=== PATIENT | female | born 1985 | race Caucasian/White ===

== ENCOUNTER 2018-08-14 08:42 | Emergency (ER) | payer BC ==
[~2018-08-14] VITALS: Ht 170.2 cm; Wt 87.2 kg
[2018-08-14 08:43] VITALS: BP 105/68
== END 2018-08-14 09:40 | disposition home or self-care (01) ==
LOC: ER 08:42
DX: O26.891 Other specified pregnancy related conditions, first trimester (principal); M79.602 Pain in left arm; Z88.5 Allergy status to narcotic agent; Z3A.12 12 weeks gestation of pregnancy
CPT/HCPCS: 99281

== ENCOUNTER 2018-09-30 19:39 | Emergency (ER) | payer BC ==
--- NOTE | 2018-09-30 19:45 | NUR ---
PT REFUSING TO BE SEEN BECAUSE HER FRIEND COULDN'T COME INTO TRIAGE. I OFFERED TO TRIAGE THE PATIENT AND TOLD HER SHE WOULD BE SEEN BUT SHE REFUSED TO BE TRIAGED.
--- NOTE | 2018-09-30 19:55 | NUR ---
triage notes written on wrong patient.
== END 2018-09-30 21:18 | disposition left against medical advice (07) ==
LOC: ER 19:39
DX: R10.9 Unspecified abdominal pain (principal); Z53.21 Procedure and treatment not carried out due to patient leaving prior to being seen by health care provider

== ENCOUNTER 2020-06-21 19:25 | Emergency (ER) | payer BC, OTHER ==
[~2020-06-21] VITALS: Ht 167.6 cm; Wt 77.3 kg
[2020-06-21 19:27] VITALS: BP 117/78
[2020-06-21 20:14] LABS: HEMOGLOBIN 14.7 g/dl (12.0-16.0); MEAN PLATELET VOLUME 9.6 FL (7.4-10.4)
[2020-06-21 20:16] LABS: BASOPHILS # (AUTO) 0.1 X10'3 (0-0.2); BASOPHILS % (AUTO) 1.1 % (0-1); EOSINOPHILS # (AUTO) 0.4 X10'3 (0-0.9); EOSINOPHILS % (AUTO) 3.1 % (0-6); HEMATOCRIT 42.8 % (35.0-45.0); LYMPHOCYTES # (AUTO) 2.5 X10'3 (1.1-4.8); LYMPHOCYTES % (AUTO) 21.5 % (21-51); MEAN CORPUSCULAR HEMOGLOBIN 31.2 PG (27.0-31.0); MEAN CORPUSCULAR HGB CONC 34.3 g/dL (33.0-36.5); MONOCYTES # (AUTO) 0.8 X10'3 (0-0.9); MONOCYTES % (AUTO) 7.4 % (2-12); NEUTROPHILS # (AUTO) 7.7 X10'3 (1.8-7.7); NEUTROPHILS % (AUTO) 66.9 % (42-75); PLATELET COUNT 273 X10'3 (140-440); RED CELL DISTRIBUTION WIDTH 13.3 % (11.5-14.5); WHITE BLOOD COUNT 11.5 X10'3 (4.5-11.0)
[2020-06-21 20:27] LABS: D-DIMER 0.79 MG/L FEU (0-0.50)
[2020-06-21 20:32] LABS: ALANINE AMINOTRANSFERASE 25 U/L (12-78); ALBUMIN 3.6 G/DL (3.4-5.0); ALKALINE PHOSPHATASE 108 IU/L (46-116); ANION GAP 11 (8-16); ASPARTATE AMINO TRANSFERASE 14 U/L (10-37); BILIRUBIN,TOTAL 0.4 MG/DL (0.1-1.0); BLOOD UREA NITROGEN 8 MG/DL (7-18); BUN/CREATININE RATIO 7.8 (6.6-38.0); CALCIUM 8.8 MG/DL (8.5-10.1); CHLORIDE 105 MMOL/L (99-107); CREATININE 1.03 MG/DL (0.40-0.90); GLUCOSE 85 MG/DL (70-104); SODIUM 141 MMOL/L (135-145); TOTAL CARBON DIOXIDE 25.3 MMOL/L (24-32); TOTAL PROTEIN 7.1 G/DL (6.4-8.2); eGFR 61 ML/MIN
[2020-06-21 20:45] LABS: POTASSIUM 4.1 MMOL/L (3.5-5.1)
[2020-06-21 20:46] LABS: HCG SERUM QL NEGATIVE
[2020-06-21] MEDS ORDERED: iohexol 350MG/ML 100ml bottle IV ONE (21:04)
== END 2020-06-21 22:13 | disposition home or self-care (01) ==
LOC: ER 19:25
DX: R07.89 Other chest pain (principal); R05 Cough; R06.02 Shortness of breath; Z20.828 Contact with and (suspected) exposure to other viral communicable diseases; Z88.8 Allergy status to other drugs, medicaments and biological substances
CPT/HCPCS: 36415; 71045; 71275; 80053; 83880; 84484; 84703; 85025; 85379; 87635; 93005; 99285; Q9967

== ENCOUNTER 2021-06-25 22:25 | Emergency (ER) | payer OTHER ==
[~2021-06-25] VITALS: Ht 167.6 cm; Wt 77.3 kg
[2021-06-25 22:32] VITALS: BP 125/80
[2021-06-26] MEDS ORDERED: ketorolac tromethamine 15mg/ml inj. IM ONE ×2 (00:05)
[2021-06-26] MEDS ORDERED: IBUP-1984 PO (00:11)
[2021-06-26] MEDS ORDERED: ketorolac trometh. 30mg/ml inj. IM ONE (00:15)
== END 2021-06-26 00:22 | disposition home or self-care (01) ==
LOC: ER 22:26
DX: S50.12XA Contusion of left forearm, initial encounter (principal); M79.632 Pain in left forearm; Z88.8 Allergy status to other drugs, medicaments and biological substances; Z79.899 Other long term (current) drug therapy; X58.XXXA Exposure to other specified factors, initial encounter; Y93.64 Activity, baseball; Y92.89 Other specified places as the place of occurrence of the external cause; Y99.8 Other external cause status
CPT/HCPCS: 73090; 96372; 99283; J1885

== ENCOUNTER 2021-12-28 19:37 | Emergency (ER) | payer OTHER ==
[~2021-12-28] VITALS: Ht 167.6 cm; Wt 84.1 kg
--- NOTE | 2021-12-28 22:07 | NUR ---
DE CALLED [facility] 30 MIN AGO
--- NOTE | 2021-12-28 22:16 | NUR ---
technical sales specialist at bedside
[2021-12-28 22:44] VITALS: BP 106/70
== END 2021-12-28 22:45 | disposition home or self-care (01) ==
LOC: ER 19:38
DX: M79.605 Pain in left leg (principal); I74.9 Embolism and thrombosis of unspecified artery; Z88.8 Allergy status to other drugs, medicaments and biological substances
CPT/HCPCS: 93971; 99284

== ENCOUNTER 2022-04-29 12:39 | Emergency (ER) | payer OTHER ==
[~2022-04-29] VITALS: Ht 170.2 cm; Wt 90.9 kg
[2022-04-29 13:07] VITALS: BP 98/67
== END 2022-04-29 17:17 | disposition left against medical advice (07) ==
LOC: ER 12:40
DX: R07.89 Other chest pain (principal); Z53.21 Procedure and treatment not carried out due to patient leaving prior to being seen by health care provider

== ENCOUNTER 2022-11-07 20:38 | Emergency (ER) | payer OTHER ==
[~2022-11-07] VITALS: Ht 170.2 cm; Wt 88.6 kg
[2022-11-07 21:03] VITALS: BP 111/72
[2022-11-07] MEDS ORDERED: ondansetron 4mg rapidly disintigrating tab PO ONE (22:30)
[2022-11-07] MEDS ORDERED: HYDROcodone/acetaminophen 5mg/325mg tablet PO ONE (22:30)
[2022-11-07] MEDS ORDERED: ketorolac trometh. 30mg/ml inj. IM ONE (22:30)
== END 2022-11-07 23:20 | disposition home or self-care (01) ==
LOC: ER 20:39
DX: S83.91XA Sprain of unspecified site of right knee, initial encounter (principal); Z88.5 Allergy status to narcotic agent; X58.XXXA Exposure to other specified factors, initial encounter; Y93.89 Activity, other specified; Y92.89 Other specified places as the place of occurrence of the external cause; Y99.8 Other external cause status
CPT/HCPCS: 73564; 96372; 99283; J1885

== ENCOUNTER 2022-11-11 21:22 | Emergency (ER) | payer OTHER ==
[~2022-11-11] VITALS: Ht 168.9 cm; Wt 90.0 kg
[2022-11-11 21:28] VITALS: BP 118/77
[2022-11-11] MEDS ORDERED: HYDROcodone/acetaminophen 10/325mg tab PO ONE (22:15)
[2022-11-11] MEDS ORDERED: HYDR-3965 PO (23:29)
[2022-11-11] MEDS ORDERED: ONDA4TAB12 PO (23:29)
[2022-11-11] MEDS ORDERED: AMOX-117 PO (23:32)
== END 2022-11-11 23:53 | disposition home or self-care (01) ==
LOC: ER 21:23
DX: S02.2XXA Fracture of nasal bones, initial encounter for closed fracture (principal); S02.40DA Maxillary fracture, left side, initial encounter for closed fracture; Z88.5 Allergy status to narcotic agent; Z79.899 Other long term (current) drug therapy; W21.07XA Struck by softball, initial encounter; Y93.89 Activity, other specified; Y92.89 Other specified places as the place of occurrence of the external cause; Y99.8 Other external cause status
CPT/HCPCS: 70486; 99284

== ENCOUNTER 2023-10-21 12:01 | Emergency (ER) | payer OTHER ==
[~2023-10-21] VITALS: Ht 170.2 cm; Wt 90.9 kg
[~2023-10-21 12:01] MED LIST: ONDA4TAB12 PO
[2023-10-21 12:03] VITALS: BP 117/77; PULSE 102; TEMP 98; O2SAT 98
[2023-10-21 12:51] VITALS: RESP 18
[2023-10-21] MEDS: HYDROcodone/acetaminophen 5mg/325mg tablet PO ONE (12:51)
[2023-10-21] MEDS ORDERED: IBUP-1984 PO (13:01)
[2023-10-21] MEDS ORDERED: HYDR-3965 PO (13:01)
[2023-10-21] MEDS: ketorolac tromethamine 15mg/ml inj. IM ONE (13:12)
[2023-10-21] MEDS: ketorolac trometh inj. 60 MG/2 ML VIAL IM ONE (13:29)
== END 2023-10-21 13:15 | disposition home or self-care (01) ==
LOC: ER 12:02
DX: S82.001A Unspecified fracture of right patella, initial encounter for closed fracture (principal); Z88.5 Allergy status to narcotic agent; Z88.8 Allergy status to other drugs, medicaments and biological substances; Z79.899 Other long term (current) drug therapy; W21.07XA Struck by softball, initial encounter; Y93.89 Activity, other specified; Y92.89 Other specified places as the place of occurrence of the external cause; Y99.8 Other external cause status
CPT/HCPCS: 29505; 73564; 96372; 99283; J1885

== ENCOUNTER 2024-04-23 10:31 | Emergency (ER) | payer OTHER ==
[~2024-04-23] VITALS: Ht 170.2 cm; Wt 94.3 kg
[~2024-04-23 10:31] MED LIST changes: +ONDA-243 PO; -ONDA4TAB12 PO
[2024-04-23] MEDS ORDERED: AMOX-580 PO (13:14)
[2024-04-23 13:20] VITALS: BP 134/78; PULSE 78; RESP 16; TEMP 98; O2SAT 99
== END 2024-04-23 13:21 | disposition home or self-care (01) ==
LOC: ER 10:31
DX: J32.8 Other chronic sinusitis (principal); Z88.8 Allergy status to other drugs, medicaments and biological substances; Z79.899 Other long term (current) drug therapy
CPT/HCPCS: 99283